=== PATIENT | female | born 1965 | race Caucasian/White ===

== ENCOUNTER → 2021-10-22 09:03 | Outpatient (CLI) | payer OTHER, SELFPAY ==
--- NOTE | ~2021-10-22 | XR_ITS ---
EXAMINATION: XR hip LT 2V w AP pelvis INDICATION: Pain left hip pain TECHNIQUE: AP view of the pelvis and three views of the left hip are obtained COMPARISON: None available FINDINGS: Bone alignment is normal. There is no fracture. There is mild osteoarthritis of the hips. P hleboliths are noted in the pelvis. IMPRESSION: 1. Mild osteoarthritis of the hips. Reviewed, dictated and finalized at location A.
== END ==
PROVIDERS: PCP Physician Assistant; Visit Provider Physician Assistant
DX: M16.0 Bilateral primary osteoarthritis of hip (principal)
CPT/HCPCS: 73502